=== PATIENT | female | born 1950 | race Hispanic/Latino ===

== ENCOUNTER 2021-06-03 10:21 | Day surgery (SDC) | payer OTHER, MEDICARE ==
[2021-05-30 15:27] LABS: Absolute Lymphocytes (CBC) 2.6 K/uL (0.7-4.9); Basophils % 0.6 % (0-1.3); Hematocrit 42.5 % (36.0-45.0); MPV 8.1 fL (7.6-11.3); RBC Red Blood Cell Count 4.91 M/uL (3.86-4.86)
[2021-05-30 15:40] LABS: Potassium 3.4 mmol/L (3.5-5.1)
--- NOTE | 2021-05-30 16:00 | RAD REPORT ---
EXAM DESCRIPTION: RAD - Chest Pa And Lat (2 Views) - 05/30/2021 3:36 pm CLINICAL HISTORY: pre procedure screening, pending soft tissue lymph node removal COMPARISON: January 2019 TECHNIQUE: Frontal and lateral views of the chest were obtained. FINDINGS: The lungs are clear of acute finding. Interstitial pattern matches comparison. Heart size is normal and central vasculature is within normal limits. No pleural effusion or pneumothorax seen . No acute bony finding noted. No aortic abnormality. IMPRESSION: No acute cardiopulmonary process. No significant change from comparison study.
[2021-06-03] MEDS ORDERED: Ringers Lactate 1,000 ML IV ONE (10:46)
[2021-06-03] MEDS ORDERED: CEFAZOLIN/NS 1gm 1 GM/50 ML BAG ONE (10:46)
[2021-06-03] MEDS ORDERED: ACETAMINOPHEN 500 MG TAB ONE (12:30)
[2021-06-03] MEDS ORDERED: CELECOXIB 100 MG CAPSULE ONE (12:30)
[2021-06-03] MEDS ORDERED: CELECOXIB 100 MG CAPSULE PO ONE (12:32)
[2021-06-03] MEDS ORDERED: ACETAMINOPHEN 500 MG TAB PO ONE (12:32)
[2021-06-03] MEDS ORDERED: propofoL 200 MG/20 ML VIAL IV ONE (13:53)
[2021-06-03] MEDS ORDERED: FENTANYL CITR 100 MCG/2 ML ONE (13:53)
[2021-06-03] MEDS ORDERED: LIDOCAINE 1% MPF 5 ML VIAL ONE (13:53)
[2021-06-03] MEDS ORDERED: BUPIVACAINE 0.5% Inj,MDV 50 mL VIAL ONE (13:58)
[2021-06-03] MEDS ORDERED: LIDOCAINE 1% 20 ML MDV ONE (13:58)
[2021-06-03] MEDS ORDERED: dexAMETHasone 10 MG/ML VIAL ONE (14:31)
[2021-06-03] MEDS ORDERED: KETOROLAC 30 MG/ML INJ ONE (14:31)
[2021-06-03] MEDS ORDERED: ONDANSETRON 4 MG/2 ML VIAL ONE (15:04)
[2021-06-03] MEDS ORDERED: Mastisol Adhesive Liq ONE (15:08)
[2021-06-03] MEDS ORDERED: HYDROCODONE/APAP 7.5/325 MG TAB ONE (16:14)
[2021-06-03 16:47] VITALS: BP 141/63; TEMP 96.9; O2SAT 96
--- NOTE | 2021-06-03 20:17 | OP ---
Date of Procedure: 06/03/2021 Surgeon: Jorge Chapman MD Anodiser: Tawanda Koroma, surgical supervisor. Preoperative Diagnosis: Enlarged mass, left axilla and history of colon cancer. Postoperative Diagnosis: Enlarged mass, left axilla and history of colon cancer. Procedure: Excision of left axillary deep lymph node. Estimated Blood Loss: Minimal. Specimen: Enlarged lymph node. Findings: On frozen section, it was mostly a fatty lymph node approximately 3 cm in diameter. Anesthesia: General. Complications: None. Disposition: The patient tolerated the procedure well, in stable condition, and taken to Recovery in good general condition. Procedure In Detail: The patient was brought to the OR and placed in supine position. General anest hesia begun. The patient was prepped and draped in the usual sterile fashion and then lidocaine 1% i nfiltrated locally. A 15-blade was used to make a 3 cm incision in the left axilla. Subcutaneous ti ssue was divided and deep to the subcutaneous tissue in the axillary fat pad, a large lymph node iden tified. Large vascular clip was used to clamp the vascular pedicles of this lymph node and the entir e lymph node excised and sent fresh to Pathology and frozen section was done to make sure it was inde ed lymphoid tissue, which it was. It did not appear to be malignant. The lymph node appeared to be mostly fatty. Subsequently wound was irrigated. Bleeding was controlled with cautery and then 2-0 c hromic was used to approximate subcutaneous tissue and 3-0 chromic used to close skin. Sterile dress ing was applied. Patient was awakened and taken to Recovery in good general condition. Discharge Note: The patient will go to Day Surgery and home when stable. Disposition: Home. Condition: Stable. Discharge Instructions: Resume home medications and diet. Activity as tolerated. No heavy lifting. Remove outer dressing in 3 days. Shower. Keep wound clean, dry. Keep Steri-Strips on at all time s. Follow up in my office in a week. Call for appointment. Tylenol No.3 one tablet p.o. q.4 p.r.n. pain. /MODL Voice ID: [id number] Report ID: [id number]
== END 2021-06-03 16:40 | disposition home or self-care (01) ==
LOC: OR 10:21
PROVIDERS: ATTEND Surgery
PROC: 07T60ZZ Resection of Left Axillary Lymphatic, Open Approach (ICD-10-PCS; principal; 2021-06-03 12:15)
DX: R22.32 Localized swelling, mass and lump, left upper limb (principal); Z85.038 Personal history of other malignant neoplasm of large intestine; Z20.822 Contact with and (suspected) exposure to COVID-19
CPT/HCPCS: 93005; 85025; 80048; 36415; 88305; 71046; 38525; U0003; J2704; J3010; J1100; J0690; J7120; J2405